=== PATIENT | female | born 1990 | race Caucasian/White ===

== ENCOUNTER 2020-05-16 09:45 | Emergency (ER) | payer OTHER ==
[~2020-05-16] VITALS: Ht 172.7 cm; Wt 74.1 kg
--- NOTE | 2020-05-16 09:58 | NUR ---
PT AMBULATORY TO ROOM, WITH UPRIGHT/STEADY GAIT. PT AMBULATED TO BR, RETURN WITH NO INCIDENT. PT CHANGED INTO GOWN, MONITORS IN PLACE.
[2020-05-16] MEDS ORDERED: ONDANSETRON 2MG/ML, 2ML ONE (10:20)
[2020-05-16 10:36] LABS: BASOPHILS % (AUTO) 0 % (0-1); EOSINOPHILS % (AUTO) 4 % (1-7); LYMPHOCYTES % (AUTO) 24 % (22-44); MD NO; MEAN CORPUSCULAR HEMOGLOBIN 31.1 pg (27.0-34.8); MEAN CORPUSCULAR HGB CONC 33.4 g/dL (32.4-35.8); MEAN PLATELET VOLUME 8.7 fL (7.4-10.4); MONOCYTES % (AUTO) 8 % (2-9); NEUTROPHILS % (AUTO) 64 % (42-75); PLATELET COUNT 197 x10^3/uL (130-400); RED BLOOD COUNT 4.58 x10^6/uL (3.82-5.3); RED CELL DISTRIBUTION WIDTH 13.2 % (9.6-15.2)
[2020-05-16 10:43] LABS: ALBUMIN 4.1 g/dL (3.4-5.0); ANION GAP 5 mmol/L (5-15); CALCIUM 8.5 mg/dL (8.5-10.1); CHLORIDE 110 mmol/L (98-107); CREATININE 0.88 mg/dL (0.55-1.02)
[2020-05-16 10:44] LABS: MICROSCOPIC AUTO
[2020-05-16 10:51] VITALS: BP 103/68
--- NOTE | 2020-05-16 10:58 | NUR ---
RH RESULT + NOTED. NO RHOGAM REQUIRED
--- NOTE | 2020-05-16 11:15 | NUR ---
PT TO US
--- NOTE | 2020-05-16 11:45 | NUR ---
PT BACK FROM US
--- NOTE | 2020-05-16 12:21 | NUR ---
Patient given discharge instructions and they have confirmed that they understand the instructions. Patient ambulatory with steady gait.
== END 2020-05-16 12:23 | disposition home or self-care (01) ==
LOC: ED 10:47
DX: O46.91 Antepartum hemorrhage, unspecified, first trimester (principal); Z3A.01 Less than 8 weeks gestation of pregnancy
CPT/HCPCS: 36415; 76817; 80048; 81001; 82040; 84702; 85025; 86901; 99284